=== PATIENT | male | born 1960 | race Caucasian/White ===

== ENCOUNTER → 2017-05-30 | Day surgery (SDC) | payer BC ==
[~2017-05-30] MED LIST: FLOMAX0.4 M1 PO; NO MEDICATIONS; VICODIN 5-3001 EACH PO; ZOFRAN PO
--- NOTE | ~2017-05-30 | OR ---
Unit #: [id number] #: [id number] Patient: EMA BURNS [id number] [facility]. [address] [place], [place] [address] [id number] O MR#: [id number] NAME: EMA BURNS ROOM: Date of Procedure: 05/30/2017 Admission Date: 05/30/2017 Surgeon: Jim Chester Jr., M.D. : 1960 Attending Physician: Jim Chester Jr., M.D. Primary Care Physician: Willi Patel D.O. OPERATIVE REPORT INDICATIONS FOR PROCEDURE The patient is a 56-year-old white male, recently presented to the office, complaining of a mass of the upper back. He was noted to have what appeared to be approximately 4 to 5 cm chronically inflamed sebaceous cyst. He was brought in this time for excision of this under local anesthesia as an outpatient. The patient understands the procedure including the risks, including that of infection, poor healing, and recurrence and consents. PREOPERATIVE DIAGNOSIS Sebaceous cyst of the back with chronic inflammation. POSTOPERATIVE DIAGNOSIS Sebaceous cyst of the back with chronic inflammation. Noting approximately 4 cm cyst. ANESTHESIA 1% Xylocaine with epinephrine locally. PROCEDURE PERFORMED Excision of chronic inflamed cyst of the upper back. DESCRIPTION OF PROCEDURE The patient was positioned prone position, after being prepped and draped in routine fashion, was anesthetized locally in the area of the cyst with 1% Xylocaine with epinephrine. An elliptical incision was made around the cyst who is being totally excised in the surrounding tissue. After it was completely removed, it was sent to pathology and hemostasis was achieved with Bovie cautery. The entire operation was done with a #10 blade scalpel. After total hemostasis was achieved, the subcutaneous tissue was approximated with interrupted 3-0 Vicryl sutures. Skin edges were approximated with stainless-steel skin clips and skin stapling device. Sterile dressings were applied externally. Estimated blood loss minimal. The patient received no fluids during the procedure. Sponges and instrument counts correct x3. There were no drains used. No complications. The patient was discharged in satisfactory condition. Dictated by... Jim Chester Jr., M.D. Unit #: [id number] #: [id number] Patient: BURNSEMA/corine TD: 05/31/2017 04:57 JOB #: [id number] OPERATIVE REPORT Page 1 of 1 X Jim Chester MD PROCEDURE OPERATIVE NOTE
== END | disposition home or self-care (01) ==
LOC: CSUR 07:13
DX: L72.0 Epidermal cyst (principal); Z87.442 Personal history of urinary calculi; Z88.6 Allergy status to analgesic agent; Z98.890 Other specified postprocedural states
CPT/HCPCS: 88304